=== PATIENT | male | born 2000 | race Caucasian/White ===

== ENCOUNTER 2020-09-02 12:33 | Emergency (ER) | payer OTHER, SELFPAY ==
--- NOTE | ~2020-09-02 | XR_ITS ---
EXAMINATION: XR wrist RT min 3V DATE: 09/02/2020 13:08 INDICATION: Right wrist pain. Fall. TECHNIQUE: 4 views of right wrist were obtained. COMPARISON: None. FINDINGS: Bone alignment is normal. No fracture. Joint spaces are well maintained. IMPRESSION: 1. Normal right wrist. Reviewed, dictated and finalized at location B. 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 Normal right wrist.
[2020-09-02 12:56] VITALS: BP 131/89; PULSE 84; RESP 16; TEMP 36.2; O2SAT 99
--- NOTE | 2020-09-02 13:07 | ED.UPPEXIN ---
HPI - Extremity Injury (Upper) General Chief Complaint: Extremity Injury, Upper Stated Complaint: right wrist pain Time Seen by Provider: 09/02/20 12:45 Source: patient Mode of arrival: ambulatory Limitations: no limitations History of Present Illness HPI narrative: Allen Archibald is a 20 yo male with a PMH of scoliosis who fell last night after tripping and fell on R wrist and bent wrist in extreme flexion. States could not sleep last night due to the pain and has mild swelling and redness but unable to use squeeze or really move fingers without pain skin is warm good cap refill Related Data Allergies Allergy/AdvReac Type Severity Reaction Status Date / Time No Known Allergies Allergy Mild Verified 10/21/11 14:25 Review of Systems Review of Systems: Narrative: CONSTITUTIONAL: Denies fever, chills, sweats. EYES: Denies visual changes, redness, discharge. ENT: Denies rhinorrhea, congestion, sore throat, otalgia. CARDIOVASCULAR: Denies chest pain, palpitations, edema. RESPIRATORY: Denies dyspnea, wheezing, cough GASTROINTESTINAL: Denies abdominal pain, nausea, vomiting, diarrhea. GENITOURINARY: Denies dysuria, hematuria, abnormal discharge SKIN: Denies rash or itching. NEUROLOGIC: Denies numbness, or focal weakness. PSYCHIATRIC: Denies anxiety or depression. Right wrist pain and swelling post fall last night PMFSH Past Medical History Medical History Scoliosis Family History Family History Other Hypertension Social History Social History Smoking status: Current some day smoker Smokeless tobacco user: chewing tobacco Alcohol intake: current Comments At time of signature, I agree with nursing past medical, surgical, social and family history. There is no relevant family history pertinent to the presenting complaint. Exam Narrative: Exam Narrative: GENERAL: This is a well-nourished, well-developed patient, in mild distress. HEAD: normocephalic, atraumatic. EYES: Sclera clear/white. Vision is grossly intact. EARS: External ears normal. Hearing grossly intact. NOSE: External nose normal without nasal discharge, nares without redness, no rhinorrhea. THROAT: Mucous membranes moist, NECK: Neck supple, CARDIOVASCULAR: Regular rate and rhythm without murmurs, gallops, or rubs. RESPIRATORY: Clear to auscultation. Breath sounds equal bilaterally. No wheezes, rales, or rhonchi. GASTROINTESTINAL: Abdomen soft, SKIN: warm, intact with no suspicious lesions or rash, good texture and turgor. NEURO: awake, alert, and oriented to person, place and time. There were no obvious focal neurologic abnormalities. Steady gait EXTREMITIES: Normal range of motion. Right wrist pain and swelling with inability to squeeze hand, no finger opposition BACK: Nontender with deformity-healed incision scar that goes from T3 to sacral area. Curvature of spine is less than 40 degrees Course Course Emergency Course: Patient comes to [facility] for evaluation of right wrist after fall last night X-ray done-results are negative for fracture or subluxation Patient placed in short arm LC OCL as patient is unable to move hand and if not does not improve, follow-up with orthopedics short arm ocl placed by tech- neurovascularly intact post placement Apply ice and use Tylenol for pain, small number of [place] for pain at night- to use only if needed Follow-up with orthopedics Vital Signs Vital signs: Vital Signs Temperature 97.1 F L 09/02/20 12:56 Pulse Rate 84 09/02/20 12:56 Respiratory Rate 16 09/02/20 12:56 Blood Pressure 131/89 09/02/20 12:56 Pulse Oximetry 99 09/02/20 12:56 Temperature 97.1 F L 09/02/20 12:56 Pulse Rate 84 09/02/20 12:56 Respiratory Rate 16 09/02/20 12:56 Blood Pressure 131/89 09/02/20 12:56 Pulse Oximetry 99 09/02/20 12:56
== END 2020-09-02 13:33 | disposition home or self-care (01) ==
PROVIDERS: Emergency Provider Nurse Practitioner; PCP Pediatrics
DX: S63.501A Unspecified sprain of right wrist, initial encounter (principal); S66.911A Strain of unspecified muscle, fascia and tendon at wrist and hand level, right hand, initial encounter; W01.0XXA Fall on same level from slipping, tripping and stumbling without subsequent striking against object, initial encounter; M41.9 Scoliosis, unspecified; F17.220 Nicotine dependence, chewing tobacco, uncomplicated
CPT/HCPCS: 29125; 73110; 99213; G0463

== ENCOUNTER → 2020-10-22 07:08 | Outpatient (CLI) | payer OTHER, SELFPAY ==
[2020-10-22 18:53] LABS: SARS-CoV-2 RNA PCR Negative
== END ==
PROVIDERS: PCP Pediatrics; Visit Provider Internal Medicine
DX: Z20.822 Contact with and (suspected) exposure to COVID-19 (principal)
CPT/HCPCS: C9803; U0003; U0005

== ENCOUNTER 2021-02-25 10:38 | Emergency (ER) | payer OTHER, SELFPAY ==
[2021-02-25] VITALS (32 sets, daily range): BP systolic 110–137; BP diastolic 60–88; PULSE 51–88; RESP 14–20; TEMP 37.1–37.3; O2SAT 95–100
--- NOTE | ~2021-02-25 | CT_ITS ---
EXAMINATION: CT abdomen pelvis w con DATE: 02/25/2021 13:23 INDICATION: Nausea and vomiting TECHNIQUE: Computed tomography (CT) of the abdomen and pelvis was performed with 100 mL Omnipaque-350 intravenous contrast. Automated exposure control and iterative reconstruction technique were employe d. The dose-length product was 291.83 mGy-cm. 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 Paraspinal atelectasis in the postero medial right lower lobe. Heart is shifted to the left due to the scoliosis and is normal in size. No pericardial or pleural effusion. Liver, gallbladder, spleen, pancreas, bilateral adrenal glands and k idneys are normal. No abnormal bowel wall thickening or obstruction. The appendix is not visualized. No pericecal inflammatory change to suggest acute appendicitis. Bladder is normal. Trace amount of li cecille reactive free fluid in the pelvis. No abscess or free intraperitoneal gas. No pathologically enl arged abdominal or pelvic lymphadenopathy. Sacralized L5 segment. IMPRESSION: 1. Trace amount of free fluid in the pelvis likely reactive of indeterminate etiology. No other acute intra-abdominal/pelvic process identified.. 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 IMPRESSION: 1. Trace amount of free fluid in the pelvis likely reactive of indeterminate et iology. No other acute intra-abdominal/pelvic process identified..
[2021-02-25 11:11] LABS: Basophils Percent Auto 0.7 % (0.2-1.2); Hematocrit 48.9 % (42.0-52.0); Hemoglobin 16.9 g/dL (14.0-18.0); Immature Granulocyte Absolute 0.01 K/mm3 (0.00-0.031); Immature Granulocyte Percent A 0.3 % (0-0.5); Lymphocytes Absolute Auto 0.75 K/mm3 (0.9-3.2); Mean Corpuscular HGB Conc 34.6 g/dl (32-36); Mean Corpuscular Hemoglobin 30.8 pg (26-34); Mean Corpuscular Volume 89.1 fl (80-100); Mean Platelet Volume 10.6 fl (7.4-10.4); Monocytes Absolute Auto 0.4 K/mm3 (0.1-0.6); Monocytes Percent Auto 12.5 % (2.6-8.5); Neutrophils Absolute Auto 1.7 K/mm3 (1.3-6.7); Neutrophils Percent Auto 59.5 % (45.5-73.1); Platelet Count Result 203 k/mm3 (150-375); Red Blood Count 5.49 M/mm3 (4.6-6.20); Red Cell Distribution Width 11.4 % (11.5-14.5); White Blood Count 2.9 K/mm3 (4.5-10.0)
[2021-02-25 11:18] LABS: Add Urine Microscopic? YES; Appearance Urine Clear (Clear); Bilirubin Urine 1+ (Negative); Blood Urine Negative (Negative); Color Urine Yellow (Yellow); Glucose Urine UA Negative (Negative); Ketones Urine 1+ mg/dL (Negative); Leukocyte Esterase Ur Negative LEU/UL (Negative); Mucus Urine Heavy /lpf; Nitrate Urine Negative (Negative); Protein Urine 2+ mg/dL (Negative); Specific Grav Ur 1.026 (1.001-1.035); Squamous Epithelial Cell Urine Rare /hpf (Few); Urobilinogen Urine Negative mg/dL (<2.0); WBC Urine 0-3 /hpf
[2021-02-25 11:19] LABS: Alanine Aminotransferase 16 U/L (4-50); Albumin Level 5.1 g/dL (3.5-5.1); Alkaline Phosphatase 72 U/L (38-126); Anion Gap 13 mmol/L (8-16); Aspartate Amino Transferase 28 U/L (17-59); Bilirubin,Total 0.7 mg/dL (0.2-1.3); Blood Urea Nitrogen 11 mg/dL (9-20); Calcium 9.6 mg/dL (8.4-10.2); Carbon Dioxide 28 mmol/L (22-30); Chloride 99 mmol/L (98-107); Estimated CRCL calculation 110 ml/min; Estimated Glomerular Filt Rate > 60; Glucose 93 mg/dL (65-110); Lipase 34 U/L (23-300); Potassium 4.1 mmol/L (3.4-5.0); Sodium 140 mmol/L (137-145)
--- NOTE | 2021-02-25 11:40 | ED.GENADULT ---
HPI - General Adult General Chief complaint: Nausea/Vomiting/Diarrhea Stated complaint: fever, diarrhea, vomiting Time Seen by Provider: 02/25/21 11:28 Source: patient Mode of arrival: ambulatory Limitations: no limitations History of Present Illness HPI narrative: Patient presents for evaluation of GI symptoms for the last 3 days. He indicates he woke from sleep at 5:00 on Saturday morning with nausea. He had several episodes of vomiting and has experienced persistent nausea and diarrhea since that time. He reports a subjective fever. He states that he has experienced a churning sensation in the abdomen but denies any abdominal pain per se. Denies any blood or mucous in the stool. 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 His mother had COVID in September of this year. He believes he also had COVID at that time. He has not received COVID vaccination. No new foods. He drinks alcohol socially. He does vape and smokes marijuana. Denies drug use otherwise. He tried taking Imodium and Tylenol without significant improvement thereafter. Related Data Allergies Allergy/AdvReac Type Severity Reaction Status Date / Time No Known Allergies Allergy Mild Verified 02/25/21 11:47 Review of Systems Review of Systems: Narrative: CONSTITUTIONAL: Reports fever. Denies chills, or sweats. EYES: Denies visual changes, redness, or discharge. ENT: Denies rhinorrhea, congestion, sore throat, or otalgia. CARDIOVASCULAR: Denies chest pain, palpitations, or edema. RESPIRATORY: Denies cough or dyspnea. GASTROINTESTINAL: Reports nausea, vomiting and diarrhea GENITOURINARY: Denies dysuria or hematuria. SKIN: Denies rash or itching. MUSCULOSKELETAL: Denies back pain, joint pain, or myalgia. NEUROLOGIC: Denies headache, numbness, dizziness, or weakness. PSYCHIATRIC: Denies anxiety or depression. 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 HEAD: Normocephalic, atraumatic. EYES: PERRLA and EOMI. ENT: Nares clear, no rhinorrhea or epistaxis. Mucous membranes moist. Oropharynx without tonsillar hypertrophy exudate or other lesions. Bilateral TMs pearly locke nonbulging NECK: Supple. No adenopathy or masses. No carotid bruits or JVD CHEST: Clear to auscultation. No respiratory distress. No wheezes rales or rhonchi HEART: Regular rate and rhythm. No murmur heard. Normal peripheral pulses. ABDOMEN: Soft, nontender, nondistended, normal active bowel sounds. EXTREMITIES: Normal range of motion. No edema. SKIN: Warm, dry, no rash. NEURO: No focal deficits. Alert and oriented x3. PSYCH: Normal mood and affect. Course Course Emergency Course: Seven 20-year-old male who presented with GI complaints. Labs were fairly benign with exception of leukocytosis noted on CBC. Lactic acid was normal. Patient was hydrated. He was given Zofran initially with Pepcid. He continued to experience nausea so was given Phenergan and Fioricet for hea
[2021-02-25] MEDS: ONDANSETRON INJ 4 MG/2 ML VIAL IV PUSH (12:05)
[2021-02-25] MEDS: FAMOTIDINE 20 MG/2 ML VIAL IV PUSH (12:05)
[2021-02-25] MEDS: SODIUM CHLORIDE 0.9% IV 1,000 ML 999 ML IV CONT (12:05)
[2021-02-25 12:17] LABS: Lactic Acid Reflex 1.2 mmol/L (0.7-2.1)
--- NOTE | 2021-02-25 12:50 | PC.NURSE ---
Pt to CT scan
[2021-02-25] MEDS: PROMETHAZINE HCL 25 MG/ML AMPUL 12.5 MG IV PUSH (13:56)
== END 2021-02-25 15:32 | disposition home or self-care (01) ==
PROVIDERS: General Practice; Emergency Provider Nurse Practitioner; PCP Pediatrics
DX: B34.9 Viral infection, unspecified (principal); F17.290 Nicotine dependence, other tobacco product, uncomplicated; Z98.1 Arthrodesis status
CPT/HCPCS: 36415; 74177; 80053; 81001; 83605; 83690; 85025; 87804; 96361; 96374; 96375; 99284; A9270; J2405; J2550; J7030; Q9967

== ENCOUNTER 2021-09-10 13:41 | Emergency (ER) | payer OTHER, SELFPAY ==
[2021-09-10 13:46] VITALS: BP 136/82; PULSE 71; RESP 16; TEMP 37.6; O2SAT 98
--- NOTE | 2021-09-10 13:48 | ED.BACK ---
HPI - Back Pain/Injury General Chief Complaint: Back Pain/Injury Stated Complaint: Back Pain Time Seen by Provider: 09/10/21 14:02 Source: patient and RN notes reviewed Mode of arrival: ambulatory Limitations: no limitations History of Present Illness HPI Narrative: 21-year-old male presents with concern for left back pain near the left scapula. Reports a history of T2-12 spinal fusion and he intermittently has pain in this area. He reports usually the pain resolves on its own, he has been taking Tylenol with no resolution of the pain for 3 to 4 days. MD elicited complaint: back pain Related Data Allergies Allergy/AdvReac Type Severity Reaction Status Date / Time No Known Allergies Allergy Mild Verified 09/10/21 13:55 Review of Systems Review of Systems: CONSTITUTIONAL: Denies malaise, chills, sweats, or fever. CARDIOVASCULAR: Denies chest pain, palpitations, or edema. RESPIRATORY: Denies cough or dyspnea. GASTROINTESTINAL: Denies abdominal pain, nausea, vomiting, diarrhea, loss of bowel function GENITOURINARY: Denies dysuria, hematuria, frequency, loss of bladder function. SKIN: Denies rash or itching. MUSCULOSKELETAL: Reports left thoracic back pain NEUROLOGIC: Denies numbness, weakness, or headache. 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 There is no relevant family history pertinent to the presenting complaint Exam Narrative: GENERAL: Well-appearing, well-nourished, and in no acute distress. HEAD: Normocephalic, atraumatic. EYES: PERRLA and EOMI. NECK: Supple. No lymphadenopathy. CHEST: Clear to auscultation. No respiratory distress. HEART: Regular rate and rhythm. Distal pulses palpable and equal, cap refill <3 seconds ABDOMEN: Soft, nontender, nondistended, normal active bowel sounds, no palpable or pulsatile masses. No CVA tenderness MUSCULOSKELETAL: Normal range of motion and strength in all extremities; 5/5 strength with hip flexion and extension, dorsiflexion and extension, knee flexion and extension, plantar flexion and extension. Normal sensation in dermatomal distributions with sensitivity to light touch and pain. No midline back tenderness to palpation. Tenderness to the left upper paraspinal area near the scapula. Transfers from lying to sitting to standing. SKIN: Warm, dry, no rash. No ecchymosis, erythema NEURO: No focal deficits. Alert and oriented x3. Normal gait. PSYCH: Normal mood and affect Course Course Emergency Course: Patient is aware of diagnosis, understands and agrees to treatment plan. Anticipatory guidance given. Patient agrees to follow-up as directed and is aware of reasons to seek care at the emergency department. Portions of this record may have been created with voice recognition software Level of Care: Express Care Visit Vital Signs Vital signs: Reviewed. MDM - Back Pain/Injury MDM Narrative Medical decision making narrative: No risk factors or findings concerning for epidural abscess, diskiti
[2021-09-10 13:57] VITALS: BP 136/82; PULSE 71; RESP 16; TEMP 37.6; O2SAT 98
== END 2021-09-10 14:12 | disposition home or self-care (01) ==
PROVIDERS: Emergency Provider Nurse Practitioner; PCP Pediatrics
DX: M54.6 Pain in thoracic spine (principal); Z98.1 Arthrodesis status; F17.290 Nicotine dependence, other tobacco product, uncomplicated; M41.9 Scoliosis, unspecified
CPT/HCPCS: 99213; G0463

== ENCOUNTER 2022-07-28 00:40 | Emergency (ER) | payer OTHER, SELFPAY ==
[2022-07-28] VITALS (8 sets, daily range): BP systolic 119–143; BP diastolic 72–81; PULSE 78–88; RESP 16–18; TEMP 36.8; O2SAT 93–100
--- NOTE | ~2022-07-28 | CT_ITS ---
EXAMINATION: CT abdomen pelvis wo con DATE: 07/28/2022 02:58 INDICATION: Right flank pain TECHNIQUE: Computed tomography (CT) of the abdomen and pelvis was performed without intravenous contr ast. The dose-length product (DLP) was 444.90 mGy-cm. Automated exposure control and iterative recons truction technique were employed. COMPARISON: 02/25/2021 FINDINGS: Minimal dependent atelectasis is present in the lung bases. The heart size is normal. The l iver, spleen, pancreas, gallbladder, and adrenal glands are normal. The left kidney is unremarkable. There is a 2 mm stone in the distal right ureter which causes mild hydroureteronephrosis. No patholog ically enlarged abdominal or pelvic lymph nodes are identified. There is no free intraperitoneal gas or evidence of bowel obstruction. The appendix is normal. There are changes of posterior fusion in th e thoracic spine. IMPRESSION: 1. 2 mm stone in the distal right ureter causing mild hydroureteronephrosis. 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
[2022-07-28 01:20] LABS: Add Urine Microscopic? NO; Appearance Urine Slightly Cloudy (Clear); Basophils Absolute Auto 0.1 K/mm3 (0.0-0.1); Basophils Percent Auto 0.9 % (0.2-1.2); Bilirubin Urine Negative (Negative); Blood Urine Negative (Negative); Color Urine Light Yellow (Yellow); Eosinophils Absolute Auto 0.4 K/mm3 (0-0.3); Eosinophils Percent Auto 5.1 % (0-4.4); Glucose Urine UA Negative (Negative); Hematocrit 46.2 % (42.0-52.0); Hemoglobin 15.9 g/dL (14.0-18.0); Immature Granulocyte Absolute 0.02 K/mm3 (0.00-0.031); Immature Granulocyte Percent A 0.2 % (0-0.5); Ketones Urine Negative (Negative); Leukocyte Esterase Ur Negative LEU/UL (Negative); Lymphocytes Absolute Auto 3.69 K/mm3 (0.9-3.2); Lymphocytes Percent Auto 42.8 % (18.3-44.2); Mean Corpuscular HGB Conc 34.4 g/dl (32-36); Mean Corpuscular Hemoglobin 30.9 pg (26-34); Mean Corpuscular Volume 89.7 fl (80-100); Mean Platelet Volume 10.6 fl (7.4-10.4); Monocytes Absolute Auto 0.7 K/mm3 (0.1-0.6); Monocytes Percent Auto 8.5 % (2.6-8.5); Neutrophils Absolute Auto 3.7 K/mm3 (1.3-6.7); Neutrophils Percent Auto 42.5 % (45.5-73.1); Nitrate Urine Negative (Negative); Platelet Count Result 300 k/mm3 (150-375); Protein Urine Negative (Negative); Red Blood Count 5.15 M/mm3 (4.6-6.20); Red Cell Distribution Width 11.9 % (11.5-14.5); Urobilinogen Urine 0.2 mg/dL (<2.0); White Blood Count 8.6 K/mm3 (4.5-10.0)
[2022-07-28 01:31] LABS: Alanine Aminotransferase 50 U/L (6-50); Alkaline Phosphatase 79 U/L (38-126); Anion Gap 9 mmol/L (8-16); Aspartate Amino Transferase 40 U/L (17-59); Bilirubin,Total 0.6 mg/dL (0.2-1.3); Blood Urea Nitrogen 14 mg/dL (9-20); Calcium 9.1 mg/dL (8.4-10.2); Carbon Dioxide 27 mmol/L (22-30); Chloride 103 mmol/L (98-107); Estimated CRCL calculation 138 ml/min; Estimated Glomerular Filt Rate > 60; Glucose 108 mg/dL (65-110); Potassium 3.2 mmol/L (3.4-5.0); Sodium 139 mmol/L (137-145)
[2022-07-28] MEDS: SODIUM CHLORIDE 0.9% IV 1,000 ML 999 ML IV CONT (02:06)
--- NOTE | 2022-07-28 02:06 | ED.GENADULT ---
HPI - General Adult General Chief complaint: Abdominal Pain Stated complaint: right flank pain Time Seen by Provider: 07/28/22 01:48 History of Present Illness HPI narrative: This is a 22-year-old male presenting ED with chief complaint of flank pain. Pain started at 11:00 p.m. last night. He describes as a pain that is sharp in the right flank that is now localized to the right lower quadrant. Is 10 out 10 intensity, comes and goes. He has never experienced pain like this before there were no exacerbating relieving factors. It is associated with nausea and vomiting. He has had hematuria here in the emergency department. He has no history of kidney stones. He denies fever, cp , cresencio or diarrhea. Related Data Allergies Allergy/AdvReac Type Severity Reaction Status Date / Time No Known Allergies Allergy Mild Verified 09/10/21 13:55 Review of Systems Review of Systems: CONSTITUTIONAL: Denies night sweats. EYES: No eye pain ENT: Denies rhinorrhea CARDIOVASCULAR: Denies palpitations RESPIRATORY: Denies hemoptysis GASTROINTESTINAL: Denies hematemesis GENITOURINARY: Denies hematuria. SKIN: Denies rash MUSCULOSKELETAL: Denies myalgia. NEUROLOGIC: Denies weakness. 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 EYES: EOMI, NOSE: Atraumatic NECK: Trachea midline RESPIRATORY: No increased rate of breathing CARDIOVASCULAR: RRR, ABDOMINAL: abdomen is soft, nontender with no guarding rebound, no CVA tenderness MUSCULOSKELETAl: No obvious deformities NEURO: Alert. Moving 4/4 extremities SKIN:: Warm, dry. Normal color PSYCHIATRIC: Normal affect Course Vital Signs Vital signs: Vital Signs Temperature 98.2 F 07/28/22 00:43 Pulse Rate 78 07/28/22 00:43 Respiratory Rate 16 07/28/22 00:43 Blood Pressure 142/72 H 07/28/22 00:43 Pulse Oximetry 100 07/28/22 00:43 Temperature 98.2 F 07/28/22 00:43 Pulse Rate 78 07/28/22 00:43 Respiratory Rate 16 07/28/22 00:43 Blood Pressure 137/77 07/28/22 02:31 Pulse Oximetry 99 07/28/22 02:31 Medical Decision Making MDM Narrative Medical decision making narrative: this is a 22-year-old male presenting ED with right-sided flank pain. differential includes kidney stone, musculoskeletal pain, appendicitis Among others. Lab work, urinalysis and CT imaging have been ordered. Patient has been given Dilaudid Tylenol and Toradol for pain control. Zofran for nausea. Lab works within acceptable limits. Urinalysis did not indicate infection. CT showed a 2 mm nonobstructing stone in the distal ureter. This is likely to pass on its own. Patient be discharged with pain medication, nausea medication urology follow-up. Vital Signs Vital Signs: Vital Signs Temperature 98.2 F 07/28/22 00:43 Pulse Rate 78 07/28/22 00:43 Respiratory Rate 16 07/28/22 00:43 Blood Pressure 142/72 H 07/28/22 00:43 Pulse Oximetry 100 07/28/22 00:43 Temperature 98.2 F 07/28/22 00:43 P
[2022-07-28] MEDS: ONDANSETRON INJ 4 MG/2 ML VIAL IV PUSH (02:07)
[2022-07-28] MEDS: HYDROmorphone HCL INJ (*CRX) 1 MG/ML SYR 0.5 MG IV PUSH (02:08)
[2022-07-28] MEDS: KETOROLAC 15 MG/ML VIAL (*BKC) IV PUSH (02:22)
--- NOTE | 2022-07-28 03:17 | PC.NURSE ---
Report given to GERMAN Charles.
== END 2022-07-28 04:24 | disposition home or self-care (01) ==
PROVIDERS: Emergency Provider Emergency Medicine; PCP Pediatrics
DX: N13.2 Hydronephrosis with renal and ureteral calculous obstruction (principal); F17.290 Nicotine dependence, other tobacco product, uncomplicated; Z98.1 Arthrodesis status
CPT/HCPCS: 36415; 74176; 80053; 81003; 85025; 96361; 96365; 96375; 99284; J0131; J1170; J1885; J2405; J7030